=== PATIENT | female | born 1980 | race Caucasian/White ===

== ENCOUNTER → 2021-09-01 | Outpatient (CLI) | payer OTHER ==
[~2021-09-01] MED LIST: ANTIVERT 12.512.5 MG PO; CYCLOBENZAPRINE10 MG PO; ELAVIL 25 MG TA25 MG PO; FELDENE10 MG PO; FLEXERIL 10 MG10 MG PO; GLUCOPHAGE 500500 MG PO; GLUCOPHAGE500 MG PO; LOVENOX SY40 MG/0.4 SQ; METFORMIN HCL1000 MG PO; METOPROLOL TAR100 MG PO; PERCOCET 5-3251 EACH PO; PERCOCET 5/325 T1 EA PO; PERCOCET 7.5-31 EACH PO; TORADOL 10 MG T10 MG PO; TRAMADOL HCL50 MG PO; TYLENOL 500 MG500 MG PO; ZANAFLEX4 MG PO; ZOFRAN4 MG PO; ZOLOFT100 MG PO; ZYVOX600 MG PO
[2021-09-01 10:57] LABS: RED BLOOD COUNT 4.44 M/UL (4.00-5.10)
== END ==
LOC: LAB 09:13
PROVIDERS: Physician Assistant
DX: E78.5 Hyperlipidemia, unspecified (principal); R63.5 Abnormal weight gain; R73.03 Prediabetes; R53.83 Other fatigue; R30.0 Dysuria
CPT/HCPCS: 36415; 80053; 80061; 83036; 84439; 84443; 85025; 87086